=== PATIENT | female | born 1975 | race African-American/Black ===

== ENCOUNTER 2016-08-10 09:05 | Inpatient (IN) | payer OTHER ==
[~2016-08-10] VITALS: Ht 162.6 cm; Wt 104.3 kg
[~2016-08-10 09:05] MED LIST: ALBUTEROL0.09 MG/A1 INH
--- NOTE | 2016-08-10 10:08 | History & Physical ---
General Information and HPI MD Statement: I have seen and personally examined RAJIV QUIROZ and documented this H&P. The patient is a 41 year old female at40 [] weeks and3 [] days gestation who presented with a chief complaint of []. GDM History of Present Illness: PT ON DIET FOR DM Allergies/Medications Allergies: Coded Allergies: NO KNOWN ALLERGIES (10/11/12) Home Med list Albuterol Sulfate (Albuterol Sulfate Hfa) 0.09 MG/Actuation CARLOZ 2 PUFF INH Q4- 6 PRN PRN SHORTNESS OF BREATH (Reported) 90 MCG PER PUFF Past History life skills coach History : 4 Para: 0 Last Menstrual Period: 11/01/15 Past life skills coach History: TOP Medical History Respiratory: asthma Blood Disorders: anemia Surgical History Pertinent Surgical History: GASTRIC BYPASS Review of Systems Review of Systems: PER HPI Exam & Diagnostic Data Obstetric Exam Wgt Gained During : 16 Pelvimetry: UN TESTED Dilation (cm): 3 Effacement (%): 80 Station: 0 Membranes: AROM Fluid: bloody show Fundal Height (cm): 39 Multiple Gestation? No Contractions: NONE Patient for Induction? Yes Murcia Score Murcia Score Response Value Cervix Position: anterior 2 Cervix Consistency: soft 2 Cervix Effacement: >80% 3 Cervix Dilation: 3-4 cm 2 Total 9 Physical Exam: PE OBESE BF WITH GLASSES ABD SOFT [id number] EXT+1 EDEMA -REFLEXS Labs Blood Type & Rh: O+ Antibody Screen: NEG Hct/Hgb & Platelets #1: /315 Hct/Hgb & Platelets #2: /342 Rubella: IMMUNE VDRL #1: NR VDRL #2: NR HbsAg: NEG HIV #1: NEG HIV #2 NEG 1 Hr P Group B Strep: NEG Initial Ultrasound: NL Anatomy Ultrasound: NL Genetic Testing: NEG Assessment/Plan Assessment/Plan: ASSESS TERM GDM PLAN PITOCIN As Ranked By This Provider Problem List: 1. 2. Morbid obesity Core Measures/Miscellaneous Venous Thromboembolism VTE Risk Factors: / VTE Contraindications: No Contraindications VTE Diagnosis: No Beta Irene Is Beta Irene a Home Med? No Antibiotics Is Patient on Antibiotics? No
[2016-08-10 10:09] LABS: ABSOLUTE BASOPHIL COUNT 0 /CUMM (0.0-0.2); ABSOLUTE EOSINOPHIL COUNT 0.1 /CUMM (0.0-0.7); ABSOLUTE GRANULOCYTE CT 5.8 /CUMM (1.4-6.5); ABSOLUTE LYMPH COUNT 0.9 /CUMM (1.2-3.4); ABSOLUTE MONOCYTE COUNT 0.5 /CUMM (0.10-0.60); BASOPHIL % 0.3 % (0.0-2.0); EOSINOPHIL % 1.1 % (0-5); GRANULOCYTE % 78.7 % (42.2-75.2); HEMATOCRIT 36.1 % (37-47); MEAN CORPUSCULAR HGB 25.1 PG (27.0-31.0); MEAN CORPUSCULAR HGB CONC 32.7 G/DL (33.0-37.0); MEAN CORPUSCULAR VOLUME 76.7 FL (81.0-99.0); MEAN PLATELET VOLUME 8.4 FL (7.4-10.4); PLATELET COUNT 332 /CUMM (130-400); RBC DISTRIBUTION WIDTH 20.4 % (11.5-14.5); WHITE BLOOD CELL COUNT 7.3 /CUMM (4.8-10.8)
[2016-08-10] MEDS ORDERED: FOLIC ACID1 M1 PO (10:22)
[2016-08-10] MEDS ORDERED: PRENATAL TABLE1 EAC2 PO (10:22)
[2016-08-10] MEDS ORDERED: FERRALET 90 TA1 EACH PO (10:23)
[2016-08-10] MEDS ORDERED: BENADRYL25 MG PO (10:24)
[2016-08-10] MEDS ORDERED: TYLENOL PM EX-1 EACH (10:25)
[2016-08-10] MEDS ORDERED: PROAIR HFA8.5 GM INH (10:26)
--- NOTE | 2016-08-10 13:47 | PN- Obstetrical ---
Subjective Subjective: C/O CTX Objective Last 24 Hrs of Vital Signs/I&O Intake & Output 08/10 1600 08/10 0800 08/10 0000 Intake Total Output Total Balance Patient 230 lb Weight Physical Exam: PE OBESE BF ABD SOFT NT Obstetric Exam Dilation (cm): 4 Effacement (%): 90 Station: 0 Membranes: AROM Fluid: light meconium Multiple Gestation? No Contractions: Q 3 MINUTES Assessment/Plan Assessment/Plan ASSESS TERM AMA MECONIUM ?CATEGORY 2 TRACING PLAN IFM OBSERVE
--- NOTE | 2016-08-10 18:34 | PN- Obstetrical ---
Subjective Subjective: NO COMPLAINTS Objective Last 24 Hrs of Vital Signs/I&O Intake & Output 08/10 1600 08/10 0800 08/10 0000 Intake Total Output Total Balance Patient 230 lb Weight Physical Exam: PLEASANT BF IN NAD ABD SOFT NT EXT+1 EDEMA Obstetric Exam Dilation (cm): 5 Effacement (%): 8 Station: 1 (MINUS1) Membranes: AROM Fluid: light meconium Multiple Gestation? No Contractions: Q 3MINUTES Assessment/Plan Assessment/Plan ASSESS ARREST OF DLIATATION PLAN C/S
[2016-08-10 21:09] VITALS: BP 130/74
--- NOTE | 2016-08-11 09:34 | Operative Report ---
Operative/Inv Procedure Report Surgery Date: 08/10/16 Name of Procedure: Primary Pre-Operative Diagnosis: Arrest of dilatation Post-Operative Diagnosis: Soft tissue dystocia Estimated Blood Loss: 750cc Surgeon/School Counsellor: HECTOR HUTCHINS,ADWOA Chester M.D. Anesthesia: spinal anesthetic Operative/Procedure Note Note: The patient was brought to the operating room placed on the OR table in the dorsal supine position. Her epidural anesthesia was reinforced. She was prepped and draped in the usual sterile fashion. A Pfannenstiel skin incision was made with the scalpel and this was taken down to the layer of the fascia. The fascia was nicked in the midline and extended bilaterally. The underlying rectus muscles are and the peritoneal cavity was entered high and bluntly. A Tripp bladder blade was inserted to protect the bladder from the operative field. A low transverse uterine incision was made over the lower uterine segment where a fibroid was noted. Membranes were ruptured revealing clear fluid and a liveborn was delivered atraumatically and handed off to the waiting director field services. The placenta was then removed intact with three- vessel cord. The uterus was then exteriorized and wiped clean with a lap spot sponge. At this point the 6 cm fibroid was noted left of the midline in the uterine incision. The uterus incision was closed in 2 layers of 0 Polysorb the second indicating the first. One interrupted [id number] suture was needed for hemostasis. The abdomen and pelvis were copiously irrigated and the uterus was placed back into the abdominal cavity. The suture line was once again visualized and noted to be hemostatic. The rectus muscles were reapproximated using interrupted sutures of 0 Polysorb. The fascia was then closed using #1 Polysorb in a running nonlocking fashion. Subcutaneous tissues were irrigated and coagulated were needed and the skin was closed using juve. A dry sterile dressing was applied to the wound and the fundus was expressed. The patient was sent to recovery in good condition. All needle, sponge, and instrument counts were correct at the end of the procedure 2. Findings: 6cm loer uterine fibroid
--- NOTE | 2016-08-11 09:35 | PN- Post Delivery/GYN ---
Subjective Subjective: No complaints Review of Systems: No flatus Objective Last 24 Hrs of Vital Signs/I&O Vital Signs Date Time Temp Pulse Resp B/P B/P Pulse O2 O2 Flow FiO2 Mean Ox Delivery Rate 08/10 2108 130/74 Physical Exam: Incision clean dry and intact Extremities nontender Assessment/Plan Assessment/Plan Postoperative day 1 status post DAVID Cazares increase activity advance diet Problem List: 1.
[2016-08-11 13:06] LABS: ABSOLUTE BASOPHIL COUNT 0 /CUMM (0.0-0.2); ABSOLUTE EOSINOPHIL COUNT 0.1 /CUMM (0.0-0.7); ABSOLUTE GRANULOCYTE CT 10.5 /CUMM (1.4-6.5); ABSOLUTE MONOCYTE COUNT 0.6 /CUMM (0.10-0.60); BASOPHIL % 0.1 % (0.0-2.0); EOSINOPHIL % 0.8 % (0-5); GRANULOCYTE % 85.6 % (42.2-75.2); MEAN CORPUSCULAR HGB 25.1 PG (27.0-31.0); MEAN CORPUSCULAR HGB CONC 32.7 G/DL (33.0-37.0); MEAN CORPUSCULAR VOLUME 76.8 FL (81.0-99.0); MEAN PLATELET VOLUME 8.8 FL (7.4-10.4); PLATELET COUNT 284 /CUMM (130-400); RBC DISTRIBUTION WIDTH 20.1 % (11.5-14.5); RED BLOOD CELL CT 4.01 /CUMM (4.20-5.40)
[2016-08-11 13:22] LABS: HEMATOCRIT 30.8 % (37-47); WHITE BLOOD CELL COUNT 12.3 /CUMM (4.8-10.8)
[2016-08-11] MEDS ORDERED: PERCOCET 5-3251 EACH PO (20:01)
[2016-08-11] MEDS ORDERED: IBUPROFEN800 M1 PO (20:01)
--- NOTE | 2016-08-12 09:35 | PN- Post Delivery/GYN ---
Subjective Subjective: Doing well this morning. No complaints. Pain controlled with PO pain meds. Ambulating and tolerating diet well. Voiding well. Passing flatus, no BM. . Bleeding is improving. No CUMMINS, BV, RUQ pain. Review of Systems: per above Objective Last 24 Hrs of Vital Signs/I&O 98.1 96 16 142/78 (in pain, previously 128/66) 98% Physical Exam: NAD RRR CTAB Abd: Good BS. Obese, Fundus firm and below umbilicus Incision: C/D/I, juve in place Current Medications: Current Medications Sig/Naima Start time Last Medication Dose Route Stop Time Status Admin Acetaminophen 650 MG Q4P PRN 08/10 1844 AC PO Bisacodyl 10 MG DAILY NEEDED PRN 08/10 1844 AC NM Diphenhydramine HCl 25 MG Q6P PRN 08/11 0100 DC 08/11 IV 0841 Docusate Sodium 100 MG AT BEDTIME PRN 08/10 1844 AC PO Enoxaparin Sodium 40 MG DAILY 08/11 1000 DC SC Enoxaparin Sodium 40 MG DAILY 08/11 1000 DC SC Enoxaparin Sodium 40 MG 0800 08/11 0800 AC 08/12 SC 0846 Hydroxyzine HCl 50 MG AT BEDTIME NEED.. 08/11 0000 AC PO Ibuprofen 800 MG .STK-MED ONE 08/11 2310 DC PO 08/11 2311 Ibuprofen 800 MG .STK-MED ONE 08/11 1407 DC PO 08/11 1408 Ibuprofen 800 MG Q6P PRN 08/10 1844 AC 08/12 PO 0845 Ketorolac 30 MG Q6P PRN 08/11 0045 DC 08/11 Tromethamine IV 0838 Lactated Ringer's 1,000 ML Q8H 08/10 1844 DC IV Magnesium Hydroxide 30 ML DAILY NEEDED PRN 08/10 1844 AC PO Oxycodone/ 1 TAB Q4P PRN 08/10 1844 AC 08/11 Acetaminophen PO 1608 Oxycodone/ 2 TAB Q4P PRN 08/10 1844 AC 08/12 Acetaminophen PO 0846 Senna 187 MG AT BEDTIME NEED.. 08/10 1844 AC PO Assessment/Plan Assessment/Plan 41 yo female POD#2 s/p LTCS for AODil Overall doing well Continue PO pain meds PRN Encourage ambulation and PO intake Continue to monitor vitals Anticipate D/C home in AM Problem List: 1. Status post section 2. Morbid obesity
--- NOTE | 2016-08-13 10:11 | PN- Post Delivery/GYN ---
Subjective Subjective: Doing well this morning. No complaints. Pain controlled with PO pain meds. Ambulating and tolerating diet well. Voiding well. Passing flatus, no BM. . Bleeding is improving. No CUMMINS, BV, RUQ pain. Review of Systems: per above Objective Last 24 Hrs of Vital Signs/I&O 98.2 84 18 130/80 99% Physical Exam: NAD RRR CTAB Abd: Good BS, Minimal TTP, no rebound. Fundus below umbilicus and firm. Inc: C/D/I Daniela in place Current Medications: Current Medications Sig/Naima Start time Last Medication Dose Route Stop Time Status Admin Acetaminophen 650 MG Q4P PRN 08/10 184 AC PO Bisacodyl 10 MG DAILY NEEDED PRN 08/10 1844 AC IL Docusate Sodium 100 MG .STK-MED ONE 08/12 2226 DC PO 08/12 2227 Docusate Sodium 100 MG AT BEDTIME PRN 08/10 184 AC 08/12 PO 2232 Enoxaparin Sodium 40 MG 0800 08/11 0800 AC 08/13 SC 0826 Hydroxyzine HCl 50 MG AT BEDTIME NEED.. 08/11 0000 AC PO Ibuprofen 800 MG .STK-MED ONE 08/12 2226 DC PO 08/12 2227 Ibuprofen 800 MG .STK-MED ONE 08/12 1431 DC PO 08/12 1432 Ibuprofen 800 MG Q6P PRN 08/10 184 AC 08/13 PO 0629 Magnesium Hydroxide 30 ML DAILY NEEDED PRN 08/10 184 AC PO Oxycodone/ 1 TAB Q4P PRN 08/10 184 AC 08/11 Acetaminophen PO 1608 Oxycodone/ 2 TAB Q4P PRN 08/10 184 AC 08/13 Acetaminophen PO 0629 Senna 187 MG AT BEDTIME NEED.. 08/10 184 AC PO Assessment/Plan Assessment/Plan 41 yo POD#3 s/p LTCS Overall doing well. Ok for discharge today. Encourages use of IS when home. Given discharge precautions for which she voiced understanding. Return on Sun for staple removal. Problem List: 1. Morbid obesity 2. Postcesarean section Attending MD Review Statement Attending Statement Attending MD Statement: examined this patient, discussed with family, reviewed EMR data (avail), discussed with nursing
== END 2016-08-13 12:59 | DRG 540 ==
LOC: GNO 09:05
PROVIDERS: ADMIT Specialist
PROC: 10D00Z1 Extraction of Products of Conception, Low, Open Approach (ICD-10-PCS; principal; 2016-08-10)
PROC: 3E033VJ Introduction of Other Hormone into Peripheral Vein, Percutaneous Approach (ICD-10-PCS; 2016-08-10)
DX: O62.1 Secondary uterine inertia (principal); Z3A.40 40 weeks gestation of pregnancy; O24.420 Gestational diabetes mellitus in childbirth, diet controlled; J45.909 Unspecified asthma, uncomplicated; E66.01 Morbid (severe) obesity due to excess calories; Z37.0 Single live birth; O34.13 Maternal care for benign tumor of corpus uteri, third trimester
CPT/HCPCS: GNOS; 36415; 81001; 87086; 88307; J0690; J1200; J1650; J1885; J7120

== ENCOUNTER 2017-09-28 06:40 | Inpatient (IN) | payer OTHER ==
[~2017-09-28] VITALS: Ht 162.6 cm; Wt 103.4 kg
[~2017-09-28 06:40] MED LIST changes: +BENADRYL25 MG PO; +FERRALET 90 TA1 EACH PO; +FOLIC ACID1 M1 PO; +IBUPROFEN800 M1 PO; +PERCOCET 5-3251 EACH PO; +PRENATAL TABLE1 EAC2 PO; +PROAIR HFA8.5 GM INH; +TYLENOL PM EX-1 EACH
--- NOTE | 2017-09-28 07:52 | History & Physical Pre-Op ---
General Information and HPI MD Statement: Previous section I have seen and personally examined RAJIV QUIROZ and documented this H&P. The patient is a 42 year old F who presented with a patient stated chief complaint of []. History of Present Illness: 42-year-old 7 para 1051 with a previous history of a section who has planned for tubal ligation section she has had adequate care she has had a short intraseptal space secondary to her advanced maternal age she has a positive group B strep Allergies/Medications Allergies: Coded Allergies: mushroom (ITCHING 08/10/16) Home Med list Acetaminophen/Diphenhydramine (Tylenol Pm Ex-Strength Caplet) 500 MG-25 MG TABLET 1 TAB AT BEDTIME SLEEP (Reported) Albuterol Sulfate (Proair Hfa) 90 MCG HFA.AER.AD 2 PUF INH Q4-6 PRN PRN ASTHMA (Reported) diphenhydrAMINE HCl (Benadryl) 25 MG CAPSULE 1 CAP PO QPM ITCHING (Reported) Ibuprofen 800 MG TABLET 800 MG PO Q6P PRN UTERINE CRAMPING Iron Carb,Gl/FA/B12/C/Docusate (Ferralet 90 Tablet) 90 MG-1 MG-12 MCG-120 MG-50 MG TABLET 1 TAB PO DAILY ANEMIA (Reported) Oxycodone HCl/Acetaminophen (Percocet 5-325 MG Tablet) 5 MG-325 MG TABLET 1 TAB PO Q4P PRN PAIN SCALE 4-6 (MODERATE) Vit No.130/Iron/FA ( Tablet) 27 MG IRON-800 MCG TABLET 1 TAB PO DAILY (Reported) Past History Medical History Respiratory: asthma Endocrine: gestational diabetes Blood Disorders: anemia Surgical History Pertinent Surgical History: GASTRIC BYPASS Past Family/Social History Psychosocial History Services at Home None Smoking Status: Never Smoked Review of Systems Review of Systems: 13 point review of systems rupture of membranes no fever no bleeding Exam & Diagnostic Data Last 24 Hrs of Vital Signs/I&O Intake & Output 09/28 0800 08/ 0000 09/27 1600 Intake Total Output Total Balance Patient 228 lb Weight Physical Exam: Thin female HEENT anicteric lungs clear Heart S1 and S2 Abdomen gravid estimated weight 3200 g abdomen with old scars from gastric bypass Pelvic Closed Extremities +1 edema negative Homans Assessment/Plan Assessment/Plan: Assessment is term multiparity advanced maternal age plan is for antibiotics for group B strep section tubal ligation patient's been counseled regarding the risks tubal ligation failure rate 1 every 250 that are performed As Ranked By This Provider Problem List: 1.
[2017-09-28 09:10] VITALS: BP 123/85
[2017-09-28 13:07] LABS: ABSOLUTE BASOPHIL COUNT 0 /CUMM (0.0-0.2); ABSOLUTE EOSINOPHIL COUNT 0 /CUMM (0.0-0.7); ABSOLUTE GRANULOCYTE CT 8.2 /CUMM (1.4-6.5); ABSOLUTE MONOCYTE COUNT 0.4 /CUMM (0.10-0.60); BASOPHIL % 0.2 % (0.0-2.0); EOSINOPHIL % 0.5 % (0-5); MEAN CORPUSCULAR HGB 26.8 PG (27.0-31.0); MEAN CORPUSCULAR HGB CONC 32.7 G/DL (33.0-37.0); MEAN PLATELET VOLUME 8.5 FL (7.4-10.4); PLATELET COUNT 280 /CUMM (130-400); RBC DISTRIBUTION WIDTH 15.3 % (11.5-14.5); RED BLOOD CELL CT 4.64 /CUMM (4.20-5.40); WHITE BLOOD CELL COUNT 9.7 /CUMM (4.8-10.8)
[2017-09-28 14:01] LABS: GRANULOCYTE % 85.1 % (42.2-75.2)
[2017-09-29 09:10] LABS: ABSOLUTE BASOPHIL COUNT 0 /CUMM (0.0-0.2); ABSOLUTE EOSINOPHIL COUNT 0.1 /CUMM (0.0-0.7); ABSOLUTE GRANULOCYTE CT 5.7 /CUMM (1.4-6.5); ABSOLUTE LYMPH COUNT 0.9 /CUMM (1.2-3.4); ABSOLUTE MONOCYTE COUNT 0.4 /CUMM (0.10-0.60); BASOPHIL % 0.2 % (0.0-2.0); EOSINOPHIL % 1.9 % (0-5); GRANULOCYTE % 79.5 % (42.2-75.2); HEMATOCRIT 33.9 % (37-47); MEAN CORPUSCULAR HGB 27.2 PG (27.0-31.0); MEAN CORPUSCULAR HGB CONC 33.3 G/DL (33.0-37.0); MEAN CORPUSCULAR VOLUME 81.7 FL (81.0-99.0); MEAN PLATELET VOLUME 8.7 FL (7.4-10.4); PLATELET COUNT 260 /CUMM (130-400); RBC DISTRIBUTION WIDTH 14.9 % (11.5-14.5); RED BLOOD CELL CT 4.15 /CUMM (4.20-5.40); WHITE BLOOD CELL COUNT 7.2 /CUMM (4.8-10.8)
--- NOTE | 2017-09-29 09:22 | PN- OBGYN ---
Surgical Brief Attending Note Brief Attending Note: Seen and evaluated Patient offers no complaints Last night dressing was changed due to localized wound bleeding but none this am Eating and no nausea nor vomiting Afebrile and VSS Lungs clear Abdomen soft and bowel sounds noted Wound intact and juve intact Extremity. No homans Meds. Lovenox Hct 33.9 and platelets 260 Rh positive POD#1 s/p LTCS #2 and BTL with complicated by history of gastric bypass and gestational diabetes. Tolerating diet Pain mgmt strategies reviewed As with GDM than recommend 6-12 week 2 hour GTT. Benefits to reduce risks of diabetes with breast feeding. She breast fed her last child. VTE prophylaxis with Lovenox daily and ambulation.
--- NOTE | 2017-09-30 08:59 | PN- OBGYN ---
Surgical Brief Attending Note Brief Attending Note: Seen and evaluated Doing well. Had gas pains and resolved with Mylicon Denies nausea No bowel movement yet Pain medication is working well AVSS Lungs clear Abdomen soft and mild distention and wound intact and juve as well. Extremities. No edema and negative zully's Pod#2 s/p LTCS #2 and BTL GDM. Follow up with Dr Kaye for 6-12 week GTT Pain mgmt strategies reviewed. Recommend binder GI. Tolerating diet and no clinical evidence of obstruction VTE prophylaxis with lovenox DC home planned for 10/01/17
[2017-10-01] MEDS ORDERED: IBUPROFEN800 M1 PO (10:11)
[2017-10-01] MEDS ORDERED: HYDROXYZINE HCL50 M1 PO (10:11)
[2017-10-01] MEDS ORDERED: PERCOCET 5-3251 EACH PO (10:11)
== END 2017-10-01 11:45 | DRG 540 ==
LOC: GNO 06:40 → SDA 07:00 → GNO 11:56
PROVIDERS: Specialist
PROC: 10D00Z1 Extraction of Products of Conception, Low, Open Approach (ICD-10-PCS; principal; 2017-09-28)
PROC: 0UT70ZZ Resection of Bilateral Fallopian Tubes, Open Approach (ICD-10-PCS; principal; 2017-09-28)
DX: O34.211 Maternal care for low transverse scar from previous cesarean delivery (principal); N85.8 Other specified noninflammatory disorders of uterus; Z3A.39 39 weeks gestation of pregnancy; Z37.0 Single live birth; O99.824 Streptococcus B carrier state complicating childbirth; Z98.84 Bariatric surgery status; O24.429 Gestational diabetes mellitus in childbirth, unspecified control
CPT/HCPCS: GNOS; 36415; 81001; 81003; 87086; J0690; J1200; J1650; J1885; J7120